=== PATIENT | female | born 1975 | race Caucasian/White ===

== ENCOUNTER 2020-11-17 15:22 | Outpatient (CLI) | payer OTHER, SELFPAY ==
--- NOTE | ~2020-11-17 | MM_ITS ---
EXAMINATION: MM screening [facility] BI w latisha HISTORY: Screening mammogram TECHNIQUE: Craniocaudal and mediolateral oblique 3-D tomosynthesis images were obtained and synthetic 2-D images were generated. CAD analysis was submitted and interpreted. COMPARISON: 05/24/2018, 02/24/2017, 02/16/2017 BREAST PARENCHYMAL COMPOSITION: The breasts are heterogeneously dense, which may obscure small masses . FINDINGS: There is no evidence of suspicious mass, calcification, or architectural distortion to sugg est malignancy in either breast. There has been no suspicious interval change. IMPRESSION: 1. No mammographic evidence of malignancy. 2. Recommend routine screening mammography in one year. BI-RADS Category 1: Negative Reviewed, dictated and finalized at location A.
== END 2020-11-17 15:23 | disposition home or self-care (01) ==
LOC: ANHIMG 15:26
PROVIDERS: PCP Family Medicine; Visit Provider Physician Assistant
DX: Z12.31 Encounter for screening mammogram for malignant neoplasm of breast (principal)
CPT/HCPCS: 77063; 77067

== ENCOUNTER → 2022-11-02 15:55 | Outpatient (CLI) | payer OTHER, SELFPAY ==
--- NOTE | ~2022-11-02 | XR_ITS ---
XR knee RT 3V DATE: 11/02/2022 16:13 INDICATION: Right knee pain TECHNIQUE: [place] and standing AP and lateral views COMPARISON: None FINDINGS: There is mild periarticular spurring of the patellofemoral joint. No fracture or dislocation or joint effusion. No radiopaque intra-articular loose body or chondral ca lcinosis. No periosteal reaction or bone destruction. IMPRESSION: Mild patellofemoral osteoarthritis Reviewed, dictated and finalized at location A.
== END ==
PROVIDERS: PCP Family Medicine; Visit Provider Family Medicine
DX: M25.561 Pain in right knee (principal); M17.11 Unilateral primary osteoarthritis, right knee
CPT/HCPCS: 73562

== ENCOUNTER → 2022-12-09 06:56 | Outpatient (CLI) | payer OTHER, SELFPAY ==
--- NOTE | ~2022-12-09 | MR_ITS ---
EXAMINATION: MR knee RT wo con DATE: 12/09/2022 07:30 INDICATION: Right knee pain. TECHNIQUE: Magnetic resonance imaging (MRI) of the right knee was performed without intravenous contr ast. Sequences included axial PD-weighted FS FSE, coronal PD-weighted FSE and PD-weighted FS FSE, sag ittal PD-weighted FSE, and sagittal T2-weighted FS FSE. COMPARISON: Right knee radiographs 11/02/2022 FINDINGS: Medial compartment: Increased signal in medial meniscus does not definitely extend to an articular surface to indicate a tear. There is full-thickness cartilage loss of femoral condyle involving the central articular surfa ce with mild subchondral edema-like marrow signal intensity. There is full-thickness cartilage loss o f tibial condyle involving the anteromedial articular surface with mild subchondral edema-like marrow signal intensity. Osteophytes are noted. Lateral compartment: Lateral meniscus is normal. There is cartilage surface irregularity of tibial condyle and femoral con dyle. There are tiny osteophytes. Patellofemoral compartment: There is shallow partial-thickness cartilage loss of patellar medial facet and median ridge. There is cartilage surface irregularity of trochlea. Osteophytes are noted. Ligaments and tendons: The anterior and posterior cruciate ligaments are normal. There are changes of prior sprains of media l collateral ligament and fibular collateral ligament characterized by thickening and increased signa l intensity proximally. There is mild patellar tendinopathy. Fluid: There is a moderate-sized knee joint effusion. IMPRESSION: 1. Severe chondrosis of medial compartment and mild chondrosis of lateral and patellofemoral compartm ents. 2. Moderate-sized knee joint effusion. Reviewed, dictated and finalized at location E. IMPRESSION: 1. Severe chondrosis of medial compartment and mild chondrosis of lateral and p atellofemoral compartments. 2. Moderate-sized knee joint effusion.
== END ==
PROVIDERS: PCP Physician Assistant Surgical; Visit Provider Orthopaedic Surgery
DX: M25.461 Effusion, right knee (principal); M25.561 Pain in right knee
CPT/HCPCS: 73721

== ENCOUNTER 2022-12-13 15:53 | Outpatient (CLI) | payer OTHER, SELFPAY ==
--- NOTE | ~2022-12-13 | MM_ITS ---
EXAMINATION: MM screening [facility] BI w latisha HISTORY: Screening mammogram TECHNIQUE: Craniocaudal and mediolateral oblique 3-D tomosynthesis images were obtained and synthetic 2-D images were generated. CAD analysis was submitted and interpreted. COMPARISON: 11/17/2020, 05/24/2018, 02/24/2017, 02/16/2017 BREAST PARENCHYMAL COMPOSITION: The breasts are heterogeneously dense, which may obscure small masses . FINDINGS: No suspicious mass, calcification, or architectural distortion are identified in either lei ast to suggest malignancy. There has been no suspicious interval change. IMPRESSION: 1. No mammographic evidence of malignancy. 2. Recommend routine screening mammography in one year. BI-RADS Category 1: Negative Reviewed, dictated and finalized at location A.
== END 2022-12-13 15:54 | disposition home or self-care (01) ==
LOC: ANHIMG 15:56
PROVIDERS: PCP Family Medicine; Visit Provider Physician Assistant
DX: Z12.31 Encounter for screening mammogram for malignant neoplasm of breast (principal)
CPT/HCPCS: 77063; 77067

== ENCOUNTER 2023-11-22 07:59 | Day surgery (SDC) | payer OTHER, SELFPAY ==
[2023-10-20 10:41] VITALS: BMI 28.0
[2023-11-08 14:53] VITALS: BMI 26.4
--- NOTE | 2023-11-21 15:34 | P.PNAN_ITS ---
Anes - Initial Pre Proc Eval Procedure: Operation Date: 11/22/23 10:00 Proposed Procedures p Screening Colonoscopy - Juan Luis Guerrier MD Date/Time: 11/21/23 15:34 Surgeon: Juan Luis Guerrier MD Pre Op Diagnosis: Neoplasm Screening Patient Data Age: 47 Gender: F Height: 1.75 m Weight: 81 kg Allergies Allergy/AdvReac Type Severity Reaction Status Date / Time erythromycin base Allergy Unknown Difficulty Verified 11/22/23 08:43 Breathing Home Medications Medication Instructions Recorded Confirmed Type valacyclovir 1 gram tablet 2,000 mg PO Q12H #4 tabs 05/30/23 11/22/23 Rx clonazepam 0.5 mg tablet 0.5 mg PO HS 11/08/23 11/22/23 History estradiol 0.01% (0.1 mg/gram) 1 appful vaginal HS 11/08/23 11/22/23 History vaginal cream (Estrace) rosuvastatin 40 mg tablet 40 mg PO HS 11/08/23 11/22/23 History norethindrone 1 mg-ethinyl See Rx Instructions .Route 11/13/23 11/22/23 Rx estradiol 20 mcg (21)-iron 75 mg .COMPLEX #28 tabs (7) tablet ([place] Fe 03/04 (28)) Patient hx anesthesia problems: none Family hx anesthesia problems: none Results Review: All pre-operative results and documents have been reviewed as part of the pre- operative evaluation. FOR[facility]LY [facility] Past Medical History Medical History (Updated 11/22/23 @ 09:11 by Juan Luis Guerrier MD) Anxiety GERD (gastroesophageal reflux disease) Mixed hyperlipidemia Primary osteoarthritis of right knee Vitamin D deficiency, unspecified Surgical History Surgical History History of LEEP (loop electrosurgical excision procedure) of cervix complicating Social History Social History (Updated 11/01/22 @ 18:11 by Roxana Kendrick RN) Smoking status: Never smoker Alcohol intake: current Drinks per week: 0 Alcohol use details: 2X A MONTH Substance use: never Substance use type: does not use Lack of Transportation: No Lack of Food: Never True Current Housing: I Have Housing Concerned About Future Housing: No Difficulty Paying Gas/Electric Bills: No Difficulty Paying for Meds: No Currently Unemployed: No Education: Trade/Vocational Certificate Difficulty w/ Childcare or Family Care: No Living arrangements: with family Occupation/Education: occupation Gender identity (if verbalized by the patient): Female Sexual Orientation (if Verbalized by the Patient): Straight or Heterosexual Spiritual care concerns: No Anes - Eval Final PreProcedure Day of Procedure 11/21/23 15:34 Patient weight: overweight Heart: regular rate and rhythm Lungs: clear to auscultation Airway: Mallampati scale class II Neurological: alert and oriented Last oral intake: >/= 8 hours ASA classification: II Emergent: no Anesthetic plan: proceed Anesthesia type and monitoring: general GIVS and standard monitoring Results Review: All pre-operative results and documents have been reviewed as part of the pre- operative evaluation. Informed Consent: The patient's anesthetic plan and its attendant risks and benefits were discussed with the patient/family/POA. Questions were solicited and answers provided to the satisfaction of the patient/family/POA.
[2023-11-22 08:45] VITALS: BP 126/73; PULSE 75; RESP 15; TEMP 36.9; O2SAT 99
[2023-11-22] MEDS: LACTATED RINGERS 1,000 ML 150 ML IV CONT (08:48)
--- NOTE | 2023-11-22 09:10 | PM.HPGS ---
History of Present Illness History of Present Illness Consent: Risks, benefits, and alternatives have been discussed and questions answered. Patient agrees to proceed with procedure. Chief complaint: Neoplasm Screening Narrative: Didi Kelly is a 47 year old female presents for screening colonoscopy. Patient's current weight appetite and bowel movements are normal. Patient denies abdominal pain. She has had no bleeding. Family history is noncontributory. Review of Systems Review of Systems: All systems reviewed & are unremarkable except as noted in HPI and below PMFSH Past Medical History Medical History (Updated 11/22/23 @ 09:11 by Juan Luis Guerrier MD) Anxiety GERD (gastroesophageal reflux disease) Mixed hyperlipidemia Primary osteoarthritis of right knee Vitamin D deficiency, unspecified Surgical History Surgical History History of LEEP (loop electrosurgical excision procedure) of cervix complicating Social History Social History (Updated 11/01/22 @ 18:11 by Roxana Kendrick RN) Smoking status: Never smoker Alcohol intake: current Drinks per week: 0 Alcohol use details: 2X A MONTH Substance use: never Substance use type: does not use Lack of Transportation: No Lack of Food: Never True Current Housing: I Have Housing Concerned About Future Housing: No Difficulty Paying Gas/Electric Bills: No Difficulty Paying for Meds: No Currently Unemployed: No Education: Trade/Vocational Certificate Difficulty w/ Childcare or Family Care: No Living arrangements: with family Occupation/Education: occupation Gender identity (if verbalized by the patient): Female Sexual Orientation (if Verbalized by the Patient): Straight or Heterosexual Spiritual care concerns: No Meds Home Medications and Allergies Home Medications Medication Instructions Recorded Confirmed Type valacyclovir 1 gram tablet 2,000 mg PO Q12H #4 tabs 05/30/23 11/22/23 Rx clonazepam 0.5 mg tablet 0.5 mg PO HS 11/08/23 11/22/23 History estradiol 0.01% (0.1 mg/gram) 1 appful vaginal HS 11/08/23 11/22/23 History vaginal cream (Estrace) rosuvastatin 40 mg tablet 40 mg PO HS 11/08/23 11/22/23 History norethindrone 1 mg-ethinyl See Rx Instructions .Route 11/13/23 11/22/23 Rx estradiol 20 mcg (21)-iron 75 mg .COMPLEX #28 tabs (7) tablet ([place] Fe 03/04 (28)) Allergies Allergy/AdvReac Type Severity Reaction Status Date / Time erythromycin base Allergy Unknown Difficulty Verified 11/22/23 08:43 Breathing Vital Signs Vital Signs - 24 hr 11/22/23 08:45 Temperature 98.4 F Pulse Rate 75 Respiratory Rate 15 Blood Pressure 126/73 Pulse Oximetry 99 Oxygen Delivery Room Air Exam Narrative: Physical exam reveals patient signs stable. HEENT exam is unremarkable. Patient is anicteric. Lungs are clear to auscultation and percussion is without murmur or extra sounds. Abdomen bowel sounds are present soft nontender with no organomegaly.. Digital external rectal exam is normal. Assessment and Plan Assessment and plan (1) Screen for colon cancer: Code(s): Z12.11 - Encounter for screening for malignant neoplasm of colon Status: Acute Assessment and Plan: Patient presents for screening colonoscopy. She appears to be at average risk for polyps. Further recommendations may be given after endoscopy.
[2023-11-22 10:22] VITALS: BP 90/51; PULSE 71; RESP 16; O2SAT 98
[2023-11-22 10:32] VITALS: BP 102/67; PULSE 55; RESP 16; O2SAT 99
[2023-11-22 10:42] VITALS: BP 100/62; PULSE 58; RESP 16; O2SAT 99
--- NOTE | 2023-11-22 12:54 | WPDANESPN ---
Anes - Prog Note Post-Op Date/Time: 11/22/23 12:54 Cardiovascular status: normal Respiratory status: normal Airway patency: baseline Mental status: baseline Post-Op hydration status: normal Vital Signs: Last Vital Signs Temp 36.9 C 11/22/23 08:45 Pulse 58 L 11/22/23 10:42 Resp 16 11/22/23 10:42 BP 100/62 11/22/23 10:42 Pulse Ox 99 11/22/23 10:42 O2 Del Method Room Air 11/22/23 10:42 Pain Score (VAS): 0 I/O: Intake & Output 11/21/23 11/22/23 11/22/23 23:59 07:59 15:59 Intake Total 600 Balance 600 Post-procedural complaints: none Patient Feedback: Patient satisfied with anesthetic care. Other Findings: Patient vital signs back to baseline. Patient denies nausea and vomiting. Patient's pain under control. Patient OK for discharge.
== END 2023-11-22 10:55 | disposition home or self-care (01) ==
PROVIDERS: PCP Family Medicine; Visit Provider Internal Medicine Gastroenterology
PROC: 0DJD8ZZ Inspection of Lower Intestinal Tract, Via Natural or Artificial Opening Endoscopic (ICD-10-PCS; CPT 45378; principal; 2023-11-22 10:00)
DX: Z12.11 Encounter for screening for malignant neoplasm of colon (principal); D12.3 Benign neoplasm of transverse colon; K64.8 Other hemorrhoids
CPT/HCPCS: 45385

== ENCOUNTER 2023-11-22 10:48 | Outpatient (NON) | payer OTHER, SELFPAY | END 2023-11-22 10:49 | disposition home or self-care (01) | LOC: ANHLAB 11-23 10:49 | PROVIDERS: PCP Family Medicine; Visit Provider Internal Medicine Gastroenterology | DX: D12.3 Benign neoplasm of transverse colon (principal); Z12.11 Encounter for screening for malignant neoplasm of colon | CPT/HCPCS: 88305 ==

== ENCOUNTER 2024-03-11 15:21 | Outpatient (CLI) | payer OTHER, SELFPAY ==
--- NOTE | ~2024-03-11 | MM_ITS ---
EXAMINATION: MM screening eleanor BI w latisha HISTORY: Screening TECHNIQUE: Craniocaudal and mediolateral oblique 3-D tomosynthesis images were obtained and synthetic 2-D images were generated. CAD analysis was submitted and interpreted. COMPARISON: Comparison to multiple prior studies sequentially, with oldest reviewed study dated 05/2017. BREAST PARENCHYMAL COMPOSITION: Dense: The breasts are heterogeneously dense, which may obscure small masses FINDINGS: There is no evidence of suspicious mass, calcification, or architectural distortion to sugg est malignancy in either breast. There has been no suspicious interval change. IMPRESSION: 1. No mammographic evidence of malignancy. 2. Recommend routine screening mammography in one year. BI-RADS Category 1: Negative Reviewed, dictated and finalized at location A. ICATION OPERATOR
--- OUTSIDE RECORDS SUMMARY | 2024-03-11 16:09 | XMS_ITS | Data Portability ---
Author Organization [place] [facility], Main Office Address [address] [place] [address] Care Team Providers [facility] Name Role Phone JESSICA SAUNDERS Primary Care Provider JESSICA SAUNDERS Referring Provider [phone] Assessment Encounter Date Assessment Date Assessment LastModified by Organization Details LastModified Time 12/30/2022 12/30/2022 HPI: Patient returns. She has been using the walker for last 2 weeks. She states that the right knee is now 75% better. She continues on diclofenac. She has noticed a swelling is gone away in the knee. Overall her symptoms are dramatically improved. Physical exam: Patient has no effusion in the right knee. Range of motion is from 0-140 degrees. She has some faint bit of tenderness over the medial tibial plateau. No lateral joint line tenderness. No tenderness over the medial femoral condyle. She is walking relatively well today. She left the walker in her car and she is walking without limp. Impression: Patient has severe medial compartment osteoarthritis. She suffered a bony contusion after a hard step off of a curb. It would seem that the bony contusion is improving and I recommended she continue to take it easy not overdo her activities and let things continue to improve. She is going to stay on the diclofenac this point. We will get blood work in 3 months and every 6 months if she continues on it. Discussed with her again the fact that she is only 47 at some point she is going to need surgical intervention on the knee but hopefully to put this off as long as possible. She can repeat cortisone injections in the future depending on her symptoms. At this point we can see her back on an as-needed basis. 20 minutes was spent in treatment patient more than half of this ttyw-zt-czzu conversation [email or web address] Not available 12/30/2022 11:12:53 05/18/2023 05/18/2023 By previous x-ra y and exam the patient is noted to have moderately severe primary osteoarthritis right knee joint particularly the medial compartment. We talked about treatment options today in detail we did discuss the possibility of gel shots we would have to get these preapproved in the meantime she would like to do cortisone therefore under sterile conditions I injected the patient's right knee joint in the office with 4 cc 0.5% Marcaine and 20 mg of Kenalog. Patient tolerated procedure well. She will continue with diclofenac low-impact exercise as tolerated. She would like to get the gel shots approved for future use I can see her back in about 6 weeks if necessary or later depending on how long the cortisone works for her. At that time we could do gel shots she was given a brochure on this today. She voiced understanding and agrees above plan she will call for any further problems difficulties or questions. Not available 05/18/2023 10:59:35 06/22/2023 06/22/2023 The patient has moderately severe primary osteoarthritis of the right knee joint. Under sterile conditions I injected the patient's right knee joint in the office today with Euflexxa injection number 1 that she brings from the specialty pharmacy for our use today. I will see her back next week for the 2nd injection, she voiced understanding agrees above plan she will call for any further problems difficulties or questions. Not available 06/22/2023 09:22:36 06/29/2023 06/29/2023 The patient has moderately severe primary osteoarthritis right knee joint. Under sterile conditions I injected the patient's right knee joint in the office today with Euflexxa injection number 2 that was brought by the patient from the specialty pharmacy. I will see her back next week for the 3rd injection right knee she voiced understanding agrees above plan she will call for any further problems difficulties or questions. Not available 06/29/2023 09:09:49 07/06/2023 07/06/2023 The patient has fairly severe primary osteoarthritis of the right knee joint under sterile conditions I injected the patient's right knee joint in the office with Euflexxa injection number 3 from the specialty pharmacy. We will give it time see how she does I will see her back in a couple of months if necessary we could do cortisone then versus gel shots again in about 6 months. She voiced understanding agrees above plan she will call for any further problems difficulties or questions. She has diclofenac she has not been taking it I have advised her to continue with diclofenac 75 mg b.i.d. with food to help as well. Not available 07/06/2023 09:13:20 Plan of Treatment Reminders Order Date Submit Date Provider Last Modified By Organization Details Last Modified Time Details Appointments None recorded. Lab None recorded. Referral None recorded. Procedures injection/a spiration joint/bursa (PROC) - in office procedure, administere d by provider 2023 024 [email or web address] In-Office Order, Internal Use Only DO Not Attach Compendium DO Not Attach Compendium, Do Not Delete/merge, [id number] 10:36:54 knee aspiration/ injection (PROC) 2023 024 [email or web address] 3 In-Office Order, Internal Use Only DO Not Attach Compendium DO Not Attach Compendium, Do Not Delete/merge, [id number] 09:06:00 knee aspiration/ injection (PROC) 2023 024 [email or web address] 3 In-Office Order, Internal Use Only DO Not Attach Compendium DO Not Attach Compendium, Do Not Delete/merge, [id number] 09:08:34 injection/a spiration joint/bursa (PROC) - in office procedure, administere d by provider 2023 024 [email or web address] In-Office Order, Internal Use Only DO Not Attach Compendium DO Not Attach Compendium, Do Not Delete/merge, [id number] 4 09:02:45 Surgeries None recorded. Imaging None recorded. Medication Orders Kenalog 10 mg/mL suspension for injection 2023 024 [email or web address] [facility] #[id number], [address], [place], [place], [phone], 11:00:31 Marcaine 0.5 % (5 mg/mL) injection solution 2023 024 [email or web address] [facility] #[id number], [address], [place], [place], [phone], 11:00:31 Patient TargetsNo targets recorded. Patient Instructions Encounter Date Encounter Id Patient Instructions Last Modified By Organization Details Last Modified Time 05/18/2023 [id number] viscosupplementa tion treatment* [email or web address] Not available 05/25/2023 09:15:02 Reason for Referral None Reported. Results Created Date Observation Date Name Description Value Unit Range Abnormal Flag Note LastModifiedBy Organization Detail LastModifiedTime 12/10/1912/09/2022 MRI, knee, w/o contr ast No observ ation record ed. [email or web address] [facility] [address], [place], [address], 12/12/2022 10:17:26 12/10/1912/09/2022 MRI, knee, w/o contr ast No observ ation record ed. [email or web address] [facility] [address], [place], [address], 12/12/2022 10:18:07 12/17/19 XR, knee No observ ation record ed. [email or web address] [facility] [address], [place], [address], 12/16/2022 10:09:00 Result Notes None recorded. Problems Name Problem SNOMED Code Status Onset Date Resolution Date Notes Provider Name and Address Organization Details Recorded Time Pain of right knee joint 9141896739440 00 Active 2022 AIDEE Deleon[place] [facility] 3 10:16:42 Osteoarthri tis of right knee joint 2657653702327 00 Active 2022 AIDEE Deleon, [place] [facility] 3 10:14:08 Problem Notes None recorded. Procedures Surgical History None recorded. Imaging Results Imaging Date Name Status LastModified by Organiz ation Details LastModified Time 12/09/2022 MRI, knee, w/o contrast completed [email or web address] [facility] [address], [place], [address], 12/12/2022 10:17:26 12/09/2022 MRI, knee, w/o contrast completed [email or web address] [facility] [address], [place], [address], 12/12/2022 10:18:07 12/16/2022 XR, knee completed [email or web address] [facility] [address], [place], [address], 12/16/2022 10:09:00 Procedure Notes None recorded. Medical Equipment None Reported. Allergies Allergen ID Allergen Name Allergen Category Reaction Reaction Severity Criticality Documentation Date Start Date Code Code System Note Provider Name and Address Organization Details Recorded Time 42688 Erythroci n medicatio n Not available Not available Not available 11/24/2022 77566 3 RxNorm AIDEE Deleon, [place] [facility] 10:10:07 Medications Name Sig Start Date Stop Date Status Note LastModified by Organization Details LastModified Time valacyclovi r 1 gram tablet TAKE 2 TABLETS BY MOUTH EVERY 12 HOURS active Not Available Not Available No t Available meloxicam 15 mg tablet TAKE 1 TABLET BY MOUTH DAILY 11/24 completed Not Available Not Available Not Available clonazepam 0.5 mg tablet TAKE 1 TABLET BY MOUTH DAILY active Not Available Not Available No t Available tramadol 50 mg tablet TAKE 1 TABLET BY MOUTH THREE TIMES DAILY NEEDED active Not Available Not Available No t Available Marcaine 0.5 % (5 mg/mL) injection solution Take 20 mg by injection route. 2023 active Not Available Not Available Not Avai lable Kenalog 10 mg/mL suspension for injection Take 20 mg by injection route. 2023 active ND: 0003- 0494- 20 Not Available Not Available Not Available diclofenac sodium 75 mg tablet,lashonda yed release Take 1 tablet twice a day by oral route. 2023 active Not Available Not Available Not Avai lable estradiol 0.01% (0.1 mg/gram) vaginal cream INSERT 1 APPLICATO RFUL VAGINALLY DAILY active Not Available Not Available No t Available rosuvastati n 20 mg tablet TAKE 1 TABLET BY MOUTH DAILY active Not Available Not Available No t Available rosuvastati n 40 mg tablet TAKE 1 TABLET BY MOUTH DAILY active Not Available Not Available No t Available solifenacin 10 mg tablet TAKE 1 TABLET BY MOUTH DAILY active Not Available Not Available No t Available Euflexxa 10 mg/mL (mw 2.4-3.6 million) intra-artic ular syringe Inject 2 mL by intra-art icular route as directed for 21 days, for right knee osteoarth ritis. 2023 active Not Available Not Available Not Avai lable sodium,pota ssium,mag sulfates 17.5 gram-3.13 gram-1.6 gram oral soln TAKE DIRECTED PER WRITTEN INSTRUCTI ONS THAT WERE MAILED TO YOU active Not Available Not Available No t Available Blisovi Fe 03/04 (28) 1 mg-20 mcg (21)/75 mg (7) tablet TAKE 1 TABLET BY MOUTH EVERY DAY active Not Available Not Available No t Available Vitals Date Recorded Body height Provider Name an d Address Organization Details Last Updated DateTime 12/30/2022 175.26 cm AIDEE Deleon [email or web address] 12/30/2022 10:12:33 Date Recorded Body height Body mass index (BMI) Body weight Provider Name and Address Organization Details Last Updated DateTime 05/18/2023 175.26 cm 26.6 kg/m2 17235.63 yanet Rodriguez CNA [email or web address] 05/18/2023 10:35:08 Date Recorded Body height Body mass index (BMI) Body weight Provider Name and Address Organization Details Last Updated DateTime 06/22/2023 175.26 cm 26.6 kg/m2 18319.63 yanet De Leon [email or web address] 06/22/2023 09:05:19 Date Recorded Body height Body mass index (BMI) Body weight Provider Name and Address Organization Details Last Updated DateTime 06/29/2023 175.26 cm 26.6 kg/m2 89418.63 yanet De Leon [email or web address] 06/29/2023 09:03:00 Date Recorded Body height Body mass index (BMI) Body weight Provider Name and Address Organization Details Last Updated DateTime 07/06/2023 175.26 cm 26.6 kg/m2 41085.63 yanet Rodriguez CNA [place] [facility] 07/06/2023 09:01:33 Social History None recorded. Functional Status None recorded. Mental Status None recorded. Family History Relationship Description Onset Age of this Age Resolved Age Notes LastModified by Organization Details LastModified Time Father Family history of malignant neoplasm [email or web address] Not available 2022 10:16:13 Mother Family history of malignant neoplasm [email or web address] Not available 2022 10:16:13 Medical History Condition Response ARTHRITIS Y Gynecological HistoryNo gynecological history recorded. Obstetrics History GPAL:G 0 P 0 0 0 0 Past Encounters Encounter ID Performer Location Encounter Start Date Encounter Closed Date Diagnosis/Indication Diagnosis SNOMED-CT Code Diagnosis ICD10 Code Diagnosis Note [id number] RADHA Woodall [facility] [address] [place] [address] 11/24/2022 09:30:59 11/24/2022 10:51:12 Pain of right knee joint 6136666169 24530 M25.064 [id number] RAD[facility] [address] [place] [address] 12/16/2022 08:54:16 12/16/2022 10:45:11 Pain of right knee joint 4582425295 94688 M25.008 [id number] RADHA Woodall [facility] [address] [place] [address] 12/30/2022 10:09:55 12/30/2022 11:13:43 Osteoarthritis of right knee joint 3878651247 71273 M17.11 [id number] RADHA Wilburn [facility] [address] [place] [address] 05/18/2023 10:31:57 05/18/2023 11:15:15 Osteoarthritis of right knee joint 7096849479 35622 M17.11 Pain of ri ght knee joint 4336721961 63469 M25.425 [id number] RAD[facility] [address] [place] [address] 06/22/2023 09:00:31 06/22/2023 09:31:24 Osteoarthritis of right knee joint 4496325785 45692 M17.11 [id number] RADHA Wilburn [facility] [address] [place] [address] 06/29/2023 08:57:32 06/29/2023 09:36:08 Osteoarthritis of right knee joint 1168970952 77339 M17.11 [id number] [facility] [address] [place] [address] 07/06/2023 08:58:18 07/06/2023 10:06:42 Osteoarthritis of right knee joint 2208848740 08340 M17.11 Pain of ri ght knee joint 8525718957 96417 M25.561 Health Concerns Section Related Observation LastModified by Organization Detai ls LastModified Time None Recorded Concern Status LastModified by Organization Details LastModified Time None Recorded Advance Directives Directive None Recorded Payers Encounter Date Sequence Insurance Name Policy Number Policy Kaur Covered Member ID Kaur Member ID Guarantor Name 12/30/2022 1 [facility] Didi Kelly [id number] Didi Kelly 05/18/2023 1 [facility] Didi Kelly [id number] Didi Kelly 06/22/2023 1 [facility] Didi Kelly [id number] Didi Kelly 06/29/2023 1 [facility] Didi Kelly [id number] Didi Kelly 07/06/2023 1 [facility] Didi Kelly [id number] Didi Kelly Notes Date Note Type Note Provider Name and Address Organization Details Recorded Time 05/18/2023 text/html Patient returns complaining of right knee pain. She has been having ongoing pain since last summer previous x-rays show what appear to be significant narrowing of the medial compartment she also has significant crepitation through the arc of motion. The knee has swollen several times in the past year she has had it drained a couple of times. Currently she has no effusion she localizes the pain to the medial compartment her exam findings previously did not show any suspicion for meniscal pathology. Cortisone has helped somewhat gives her fairly decent relief she has not had a cortisone shot for quite awhile she would like another 1 today. She was last seen by Jordan Downs in December of 2022 for recheck but did not have an injection then. She does take diclofenac 75 mg BID daily. Denies any new trauma or injury comes in today requesting further evaluation treatment. She does work out she has had to adjust her workout routine and is doing low-impact things. She states the pain is about an 8 on a scale of 1-10 today. RADHA Wilburn [address], [place], [address], [place] 05/18/2023 11:00:20 06/22/2023 text/html patient returns for Euflexxa injection number 1 right knee. She brings the injection from the specialty pharmacy for use today. The patient has moderately severe primary osteoarthritis with near djxz-cj-[id number] changes in medial compartment of the right knee. She continues have some pain ongoing for about a year. The patient has had previous cortisone injections which gave her moderate relief she would now like to try a round of gel shots instead. Denies any new symptoms no new trauma or injury to the knee other than some bruising on the upper medial knee and thigh where she stumbled and fell down some stairs. Denies any other symptoms other than the bruise there. RADHA Wilburn [address], [place], [address], [email or web address] 06/22/2023 09:23:11 06/29/2023 text/html Patient returns for Euflexxa injection number 2 right knee. She brings her medication from the specialty pharmacy for use today. She is moderately severe primary osteoarthritis which is near tfoi-em-mzcx in the medial compartment of the right knee she has had some chronic pain ongoing for about a year. She comes in today states she is already starting to get some relief feeling good today. States her pain is about a 1 on a scale of 1-10 at worst. She is quite pleased with the results so far. Denies any erythema effusion or signs of infection. RADHA Wilburn [address], [facility] [address], [place], [address], [email or web address] 06/29/2023 09:10:04 07/06/2023 text/html Patient returns for Euflexxa injection number 3 that she brings in from the specialty pharmacy. She has getting a little bit of relief with her right knee from the 1st 2 rounds of injections but not where she wants to be yet I have advised her to give it more time she has cvxy-uy-vqsh changes in the medial compartment of the right knee she states her pain is about a 2 on a scale of 1-10. Denies any effusion or swelling no erythema heat or other signs of infection today. RADHA Wilburn [address], [facility] [address], [place], [address], [email or web address] 07/06/2023 09:13:34 OBGyn Episode No OBEpisode recorded.
--- OUTSIDE RECORDS SUMMARY | 2024-03-11 16:09 | XMS_ITS | CONTINUITY OF CARE DOCUMENT ---
Author Name kyler chávez Address Unknown Organization [facility] Address [address] [place] [address] [address] [place] [address] Phone [phone] Care Team Providers Care Anime Designer Name Role Phone Gabriel Delgadillo MD Unavailable JESSICA SAUNDERS MD Unavailable JESSICA SAUNDERS MD Unavailable PROBLEMS Condition Status Date Provider Notes Cardiovascular screening active Tamara Henderson INSURANCE PROVIDERS Payer name Policy type / Coverage type Almyra red libertarian ID [facility] [id number] Other [id number] TREATMENT PLAN Date Name CT, Coronary Calcium Score HISTORY OF PROCEDURES Procedure Date Procedure Name Provider Procedure Notes S tatus CT- Coronary CA score Gabriel Delgadillo MD completed
--- OUTSIDE RECORDS SUMMARY | 2024-03-11 16:09 | XMS_ITS | Data Portability ---
Author Organization [facility]am [facility] Address [address] [place] [address] Care Team Providers Care [employer] Teacher Name Role Phone MARIE GIL Rehabilitation Case Coordinator Unavailable Assessment No assessment recorded. Plan of Treatment Reminders Order Date Submit Date Provider Last Modified By Organization Details Last Modified Time Details Appointments None recorded. Lab test, urine 2014 015 [email or web address] In-Office Order, Internal Use Only DO Not Attach Compendium DO Not Attach Compendium, Do Not Delete/merge, [id number] 5 16:08:38 urinalysi s, dipstick 2014 015 [email or web address] In-Office Order, Internal Use Only DO Not Attach Compendium DO Not Attach Compendium, Do Not Delete/merge, [id number] 5 16:08:38 pap, IG + HPV, cervical 2015 016 [facility], [address] [place] [address], [address], [place], [address], 6 09:11:40 bacterial vaginosis + vaginitis panel, vaginal 2015 016 [facility], [address], [address], [place], [address], 6 14:13:27 test, urine 2015 016 [email or web address] In-Office Order, Internal Use Only DO Not Attach Compendium DO Not Attach Compendium, Do Not Delete/merge, [id number] 6 10:36:52 urinalysi s, dipstick 2015 016 [email or web address] In-Office Order, Internal Use Only DO Not Attach Compendium DO Not Attach Compendium, Do Not Delete/merge, [id number] 6 10:36:52 dhea-sulf ate, serum [address], [address], [place], [address], 6 06:07:09 testoster one, total, serum 2015 [address], [address], [place], [address], 6 06:07:08 lipid panel, serum 2015 [address], [address], [place], [address], 6 06:07:07 HbA1c (hemoglob in A1c), blood 2015 [address], [address], [place], [address], 6 06:07:08 CMP, serum or plasma 2015 [address], [address], [place], [address], 6 06:07:07 TSH, serum or plasma [address], [address], [place], [address], 6 06:07:09 FSH (follicle -stimulat ing hormone), serum 2015 016 [facility], [address], [address], [place], [address], 6 06:07:10 lh (luteiniz ing hormone), serum 2015 016 [facility], [address] [facility] [address], [place], [address], 6 06:07:10 prolactin , serum 2015 016 [facility], [address] [facility] [address], [address], [place], [address], 6 06:07:11 estradiol , serum 2015 016 [facility], [address] [place], [place] [address]and[address], [address], [place], [address], 6 06:07:11 progester one, serum 2015 016 [facility], [address] [place], [place] [address], [address], [place], [address], 6 06:07:11 urinalysi s, dipstick 2015 016 DBA_PATCH_[email or web address] [id number] In-Office Order, Internal Use Only DO Not Attach Compendium DO Not Attach Compendium, Do Not Delete/merge, [id number] 6 04:31:13 test, urine 2015 016 DBA_PATCH_2 [id number] In-Office Order, Internal Use Only DO Not Attach Compendium DO Not Attach Compendium, Do Not Delete/merge, [id number] 6 04:31:21 Referral counselin g referral - LAMAR with panic and tachycard ia 2015 016 [email or web address] Maxime Luna (), [address] [place] [address], [address], 6 09:12:28 Procedures uterine fibroid embolizat ion (PROC) 2015 016 DBA_PATCH_[email or web address] [id number] Not available 6 04:30:57 Surgeries None recorded. Imaging MAMMO, screening , bilateral 2015 016 [email or web address] [facility], [address] [place], [address], 6 09:13:39 US, pelvis - Trans vaginal and trans abdominal , possible uterine fibroids and/or polyps. 2015 016 [facility], [address] [place], [address], 6 10:39:38 MAMMO, diagnosti c, digital, bilateral 2015 016 [facility], [address], [address], [address], 7 15:25:18 US, pelvis, transabdo pelon + transvagi nal 2015 016 DBA_PATCH_2 [id number] [facility], [address] [place], [address], 6 04:30:54 US, transvagi nal 2016 018 [email or web address] [facility], [address] [place], [address], 8 14:49:17 Medication Orders Prometriu m 100 mg capsule 2014 015 [facility] [place], [address], 5 16:08:38 buspirone 5 mg tablet 2015 016 [facility] [address] [place], [address], 6 10:36:52 Lo Loestrin Fe 1 mg-10 mcg (24)/10 mcg (2) tablet 2016 017 [facility] [address] [place], [address], 7 16:19:17 ibuprofen 800 mg tablet 2016 017 [facility] [address] [place], [address], 7 16:19:18 Patient TargetsNo targets recorded. Patient Instructions Encounter Date Encounter Id Patient Instructions Last Modified By Organization Details Last Modified Time 12/15/2015 [id number] Core Needle Breast Biopsy: About This Test Not available 12/15/2015 13:36:56 uterine fibroids : care instructions Not available 12/15/2015 13:36:56 08/09/2016 [id number] uterine fibroids : care instructions [email or web address] Not available 08/09/2016 17:06:11 Reason for Referral Counseling Referral for Anxi ety LAMAR with panic and tachycardia Referring Physician: Marie Gil, BARREL PL[employer]ER, Encounter Date: 07/28/2015 Results Created Date Observation Date Name Description Value Unit Range Abnormal Flag Note LastModifiedBy Organization Detail LastModifiedTime 12/15/19 16 12/15/2015 pregn nelson test, urine HCG negati ve Not Available In-Office Order Internal Use Only DO Not Attach Compendium DO Not Attach Compendium, Do Not Delete/merge, [id number] 12/15/2015 13:01:21 12/15/19 16 12/15/2015 urina lysis , dipst ick Leukocytes Small Not Available In-Offi ce Order Internal Use Only DO Not Attach Compendium DO Not Attach Compendium, Do Not Delete/merge, [id number] 12/15/2015 13:00:05 12/15/19 16 12/15/2015 urina lysis , dipst ick Nitrite negati ve Not Available In-Office Order Internal Use Only DO Not Attach Compendium DO Not Attach Compendium, Do Not Delete/merge, [id number] 12/15/2015 13:00:05 12/15/19 16 12/15/2015 urina lysis , dipst ick Urobilinogen .2 Not Available In-Of fice Order Internal Use Only DO Not Attach Compendium DO Not Attach Compendium, Do Not Delete/merge, [id number] 12/15/2015 13:00:05 12/15/19 16 12/15/2015 urina lysis , dipst ick Protein Negati ve Not Available In-Office Order Internal Use Only DO Not Attach Compendium DO Not Attach Compendium, Do Not Delete/merge, [id number] 12/15/2015 13:00:05 12/15/19 16 12/15/2015 urina lysis , dipst ick pH 8.5 Not Available In-Office Order Internal Use Only DO Not Attach Compendium DO Not Attach Compendium, Do Not Delete/merge, [id number] 12/15/2015 13:00:05 12/15/19 16 12/15/2015 urina lysis , dipst ick Blood Negati ve Not Available In-Office Order Internal Use Only DO Not Attach Compendium DO Not Attach Compendium, Do Not Delete/merge, [id number] 12/15/2015 13:00:05 12/15/19 16 12/15/2015 urina lysis , dipst ick Specific Odin 1.015 Not Available In-Off ice Order Internal Use Only DO Not Attach Compendium DO Not Attach Compendium, Do Not Delete/merge, [id number] 12/15/2015 13:00:05 12/15/19 16 12/15/2015 urina lysis , dipst ick Ketone Negati ve Not Available In-Office Order Internal Use Only DO Not Attach Compendium DO Not Attach Compendium, Do Not Delete/merge, [id number] 12/15/2015 13:00:05 12/15/19 16 12/15/2015 urina lysis , dipst ick Bilirubin Negati ve Not Available In-Office Order Internal Use Only DO Not Attach Compendium DO Not Attach Compendium, Do Not Delete/merge, [id number] 12/15/2015 13:00:05 12/15/19 16 12/15/2015 urina lysis , dipst ick Glucose Negati ve Not Available In-Office Order Internal Use Only DO Not Attach Compendium DO Not Attach Compendium, Do Not Delete/merge, 12/15/2015 13:00:07/28/19 16 07/28/2015 urina lysis , dipst ick Leukocytes Negati ve Not Available In-Office Order Internal Use Only DO Not Attach Compendium DO Not Attach Compendium, Do Not Delete/merge, 07/28/2015 11:44:07/28/19 16 07/28/2015 urina lysis , dipst ick Nitrite negati ve Not Available In-Office Order Internal Use Only DO Not Attach Compendium DO Not Attach Compendium, Do Not Delete/merge, 07/28/2015 11:44:07/28/19 16 07/28/2015 urina lysis , dipst ick Urobilinogen .2 Not Available In-Of fice Order Internal Use Only DO Not Attach Compendium DO Not Attach Compendium, Do Not Delete/merge, 07/28/2015 11:44:07/28/19 16 07/28/2015 urina lysis , dipst ick Protein Negati ve Not Available In-Office Order Internal Use Only DO Not Attach Compendium DO Not Attach Compendium, Do Not Delete/merge, 07/28/2015 11:44:07/28/19 16 07/28/2015 urina lysis , dipst ick pH 7.5 Not Available In-Office Order Internal Use Only DO Not Attach Compendium DO Not Attach Compendium, Do Not Delete/merge, 07/28/2015 11:44:07/28/19 16 07/28/2015 urina lysis , dipst ick Blood Small Not Available In-Office Order Internal Use Only DO Not Attach Compendium DO Not Attach Compendium, Do Not Delete/merge, 07/28/2015 11:44:07/28/19 16 07/28/2015 urina lysis , dipst ick Specific Odin 1.015 Not Available In-Off ice Order Internal Use Only DO Not Attach Compendium DO Not Attach Compendium, Do Not Delete/merge, 07/28/2015 11:44:07/28/19 16 07/28/2015 urina lysis , dipst ick Ketone Negati ve Not Available In-Office Order Internal Use Only DO Not Attach Compendium DO Not Attach Compendium, Do Not Delete/merge, 07/28/2015 11:44:05 07/28/19 16 07/28/2015 urina lysis , dipst ick Bilirubin Negati ve Not Available In-Office Order Internal Use Only DO Not Attach Compendium DO Not Attach Compendium, Do Not Delete/merge, 07/28/2015 11:44:05 07/28/19 16 07/28/2015 urina lysis , dipst ick Glucose Negati ve Not Available In-Office Order Internal Use Only DO Not Attach Compendium DO Not Attach Compendium, Do Not Delete/merge, 07/28/2015 11:44:05 07/28/19 16 07/28/2015 urina lysis , dipst ick Appearance Clear Not Available In-Offi ce Order Internal Use Only DO Not Attach Compendium DO Not Attach Compendium, Do Not Delete/merge, 07/28/2015 11:44:05 07/28/19 16 07/28/2015 urina lysis , dipst ick Color Pale Yellow Not Available In-Office Order Internal Use Only DO Not Attach Compendium DO Not Attach Compendium, Do Not Delete/merge, 07/28/2015 11:44:05 07/28/19 16 07/28/2015 pregn nelson test, urine HCG negati ve Not Available In-Office Order Internal Use Only DO Not Attach Compendium DO Not Attach Compendium, Do Not Delete/merge, 07/28/2015 11:44:05 10/15/19 15 10/14/2014 urina lysis , dipst ick Leukocytes Negati ve Not Available In-Office Order Internal Use Only DO Not Attach Compendium DO Not Attach Compendium, Do Not Delete/merge, 10/14/2014 15:29:38 10/15/19 15 10/14/2014 urina lysis , dipst ick Nitrite negati ve Not Available In-Office Order Internal Use Only DO Not Attach Compendium DO Not Attach Compendium, Do Not Delete/merge, 10/14/2014 15:29:38 10/15/19 15 10/14/2014 urina lysis , dipst ick Urobilinogen .2 Not Available In-Of fice Order Internal Use Only DO Not Attach Compendium DO Not Attach Compendium, Do Not Delete/merge, 10/14/2014 15:29:38 10/15/19 15 10/14/2014 urina lysis , dipst ick Protein Negati ve Not Available In-Office Order Internal Use Only DO Not Attach Compendium DO Not Attach Compendium, Do Not Delete/merge, 10/14/2014 15:29:38 10/15/1910/14/2014 urina lysis , dipst ick pH 8.5 Not Available In-Office Order Internal Use Only DO Not Attach Compendium DO Not Attach Compendium, Do Not Delete/merge, 10/14/2014 15:29:38 10/15/19 15 10/14/2014 urina lysis , dipst ick Blood Negati ve Not Available In-Office Order Internal Use Only DO Not Attach Compendium DO Not Attach Compendium, Do Not Delete/merge, 10/14/2014 15:29:38 10/15/1910/14/2014 urina lysis , dipst ick Specific Odin 1.015 Not Available In-Off ice Order Internal Use Only DO Not Attach Compendium DO Not Attach Compendium, Do Not Delete/merge, 10/14/2014 15:29:38 10/15/1910/14/2014 urina lysis , dipst ick Ketone Negati ve Not Available In-Office Order Internal Use Only DO Not Attach Compendium DO Not Attach Compendium, Do Not Delete/merge, 10/14/2014 15:29:38 10/15/1910/14/2014 urina lysis , dipst ick Bilirubin Negati ve Not Available In-Office Order Internal Use Only DO Not Attach Compendium DO Not Attach Compendium, Do Not Delete/merge, 10/14/2014 15:29:38 10/15/19 15 10/14/2014 urina lysis , dipst ick Glucose Negati ve Not Available In-Office Order Internal Use Only DO Not Attach Compendium DO Not Attach Compendium, Do Not Delete/merge, [id number] 10/14/2014 15:29:38 10/15/19 15 10/14/2014 pregn nelson test, urine HCG negati ve Not Available In-Office Order Internal Use Only DO Not Attach Compendium DO Not Attach Compendium, Do Not Delete/merge, [id number] 10/14/2014 15:07:20 07/28/19 16 07/30/2015 bacte rial vagin osis + vagin itis panel , vagin al bessie albicans, VY NEGATI VE negati ve Not Available [facility] ([facility]) [address] [place], [address], 07/31/2015 14:13:27 07/28/19 16 07/30/2015 bacte rial vagin osis + vagin itis panel , vagin al bessie glabrata, VY NEGATI VE negati ve THIS TEST WAS DEVEL OPED AND ITS PERFO RMANC E LAMIN CTERI STICS DETER MINED BY [facility]. IT HAS NOT BEEN CLEAR ED OR APPRO INGRIS BY THE FOOD AND DRUG ADMIN ISTRA TION. THE FDA HAS DETER MINED THAT SUCH CLEAR ANCE OR APPRO FOREST IS NOT NECES ELLYN. Not Available [facility] ([facility]) [address] [facility], [place], [address], 07/31/2015 14:13:27 07/28/19 16 07/30/2015 bacte rial vagin osis + vagin itis panel , vagin al trich vag by VY NEGATI VE negati ve Not Available [facility] ([facility]) [address] [place], [address], 07/31/2015 14:13:27 07/28/19 16 07/30/2015 bacte rial vagin osis + vagin itis panel , vagin al chlamydia trachomatis, VY NEGATI VE negati ve Not Available [facility] ([facility]) [address] [place], [address], 07/31/2015 14:13:27 07/28/19 16 07/30/2015 bacte rial vagin osis + vagin itis panel , vagin al neisseria gonorrhoeae, VY NEGATI VE negati ve Not Available [facility] ([facility]) [address] [facility], [place], [address], 07/31/2015 14:13:27 07/28/19 16 07/31/2015 bacte rial vagin osis + vagin itis panel , vagin al atopobium vaginae HIGH - 2 score abnormal Not Available [facility] ([facility]) [address] [facility], [place], [address], 07/31/2015 14:13:27 07/28/19 16 07/31/2015 bacte rial vagin osis + vagin itis panel , vagin al bvab 2 HIGH - 2 score abnormal Not Available [facility] ([facility]) [address] [place], [address], 07/31/2015 14:13:27 07/28/19 16 07/31/2015 bacte rial vagin osis + vagin itis panel , vagin al megasphaera 1 HIGH - 2 score abnormal CALCU LATE TOTAL SCORE BY MOSHE Olivarez THE 3 INDIV IDUAL BACTE RIAL VAGIN OSIS (BV) MARKE R SCORE S TOGET HER. TOTAL SCORE IS INTER PRETE D FOLLO WS: TOTAL SCORE 0-1: INDIC ATES THE ABSEN CE OF BV. TOTAL SCORE 2: INDET ERMIN ATE FOR BV. ADDIT IONAL CLINI ASHOK DATA SHOUL D BE EVALU ATED TO ESTAB ALEXANDRO A DIAGN OSIS. TOTAL SCORE 3-6: INDIC ATES THE PRESE NCE OF BV. THIS TEST WAS DEVEL OPED AND ITS PERFO RMANC E LAMIN CTERI STICS DETER MINED BY [facility]. IT HAS NOT BEEN CLEAR ED OR APPRO INGRIS BY THE FOOD AND DRUG ADMIN ISTRA TION. THE FDA HAS DETER MINED THAT SUCH CLEAR ANCE OR APPRO FOREST IS NOT NECES ELLYN. Not Available [facility] ([facility]) [address] [place], [address], 07/31/2015 14:13:27 07/28/19 16 07/31/2015 pap, IG + HPV, cervi ashok diagnosis: CAMRON Turpin abnormal EPITH ELIAL CELL ABNOR MALIT Y. ATYPI ASHOK SQUAM OUS CELLS OF UNDET ERMIN ED SIGNI KAYLA CE. Not Available [facility] ([facility]) [address] [place], [address], 08/03/2015 09:11:39 07/28/19 16 07/31/2015 pap, IG + HPV, cervi ashok specimen adequacy: CAMRON Turpin SATIS FACTO RY FOR EVALU ATION . ENDOC ERVIC AL AND/O R SQUAM OUS METAP LASTI C CELLS (ENDO CERVI ASHOK COMPO NENT) ARE PRESE NT. Not Available [facility] ([facility]) [address] [place], [address], 08/03/2015 09:11:39 07/28/19 16 07/31/2015 pap, IG + HPV, cervi ashok clinician provided ICD10: CAMRON Turpin Z01.4 11 Not Available [facility] ([facility]) [address] [place], [address], 08/03/2015 09:11:39 07/28/19 16 07/31/2015 pap, IG + HPV, cervi ashok performed by: CAMRON HOYT , CYTOT ECHNO LOGIS T (ASCP ) Not Available [facility] ([facility]) [address] [place], [address], 08/03/2015 09:11:39 07/28/19 16 07/31/2015 pap, IG + HPV, cervi ashok electronical ly signed by: CAMRON SHARMA MD, PATHO LOGIS T Not Available [facility] ([facility]) [address] [place], [address], 08/03/2015 09:11:39 07/28/19 16 07/31/2015 pap, IG + HPV, cervi ashok . . Not Available [facility] ([facility]) [address] [place], [address], 08/03/2015 09:11:39 07/28/19 16 07/31/2015 pap, IG + HPV, cervi ashok pathologist provided ICD10: LIZYJUAN Turpin R87.6 10 Not Available [facility] ([facility]) [address] [facility], [place], [address], 08/03/2015 09:11:39 07/28/19 16 07/31/2015 pap, IG + HPV, cervi ashok note: CAMRON Turpin THE PAP SMEAR IS A SCREE FORTINO TEST DESIG GILMAR TO AID IN THE DETEC TION OF DEMARCUS LIGNA NT AND MALIG NANT CONDI TIONS OF THE UTERI NE CERVI X. IT IS NOT A DIAGN OSTIC PROCE DURE AND SHOUL D NOT BE USED THE SOLE MEANS OF DETEC TING CERVI ASHOK CANCE R. BOTH FALSE -POSI TIVE AND FALSE -NEGA TIVE REPOR TS DO OCCUR . Not Available [facility] ([facility]) [address] [facility], [place], [address], 08/03/2015 09:11:39 07/28/19 16 07/31/2015 pap, IG + HPV, cervi ashok test methodology: CAMRON Turpin THIS LIQUI D BASED THINP REP(R ) PAP TEST WAS SCREE GILMAR WITH THE USE OF AN IMAGE GUIDE Zuleyma Ospina. Not Available [facility] ([facility]) [address] [place], [address], 08/03/2015 09:11:39 07/28/19 16 08/03/2015 pap, IG + HPV, cervi ashok HPV aptima NEGATI VE negati ve THIS TEST DETEC TS FOURT EEN HIGH- RISK HPV TYPES (16/1 8/31/ 33/35 /39/4 5/ 51/52 /56/5 8/59/ 66/68 ) WITHO UT DIFFE RENTI ATION . Not Available [facility] ([facility]) [address] [place], [address], 08/03/2015 09:11:39 07/29/19 16 07/30/2015 CMP, serum or plasm a glucose, serum 88 mg/dL 65-99 Not Available [facility] ([facility]) [address] [facility] [place], [address], 07/30/2015 06:07:07 07/29/19 16 07/30/2015 CMP, serum or plasm a BUN 9 mg/dL 6-24 Not Available [facility] ([facility]) [address] [place], [address], 07/30/2015 06:07:07 07/29/19 16 07/30/2015 CMP, serum or plasm a creatinine, serum 0.51 mg/dL 0.57-1 .00 below low normal Not Available [facility] ([facility]) [address] [place], [address], 07/30/2015 06:07:07 07/29/19 16 07/30/2015 CMP, serum or plasm a eGFR if nonafricn AM 120 mL/mi n/1.7 3 >59 Not Available [facility] ([facility]) [address] [place], [address], 07/30/2015 06:07:07 07/29/19 16 07/30/2015 CMP, serum or plasm a eGFR if africn AM 138 mL/mi n/1.7 3 >59 Not Available [facility] ([facility]) [address] [place], [address], 07/30/2015 06:07:07 07/29/19 16 07/30/2015 CMP, serum or plasm a BUN/creatini ne ratio 18 9-23 Not Available [facility] ([facility]) [address] [place], [address], 07/30/2015 06:07:07 07/29/19 16 07/30/2015 CMP, serum or plasm a sodium, serum 139 mmol/ L 134-14 4 Not Available [facility] ([facility]) [address] [place], [address], 07/30/2015 06:07:07 07/29/1907/30/2015 CMP, serum or plasm a potassium, serum 4.3 mmol/ L 3.5-5. 2 Not Available [facility] ([facility]) [address] [place], [address], 07/30/2015 06:07:07 07/29/1907/30/2015 CMP, serum or plasm a chloride, serum 100 mmol/ L 97-108 Not Available [facility] ([facility]) [address] [place], [address], 07/30/2015 06:07:07 07/29/1907/30/2015 CMP, serum or plasm a carbon dioxide, total 24 mmol/ L 18-29 Not Available [facility] ([facility]) [address] [place], [address], 07/30/2015 06:07:07 07/29/1907/30/2015 CMP, serum or plasm a calcium, serum 8.8 mg/dL 8.7-10 .2 Not Available [facility] ([facility]) [address] [place], [address], 07/30/2015 06:07:07 07/29/1907/30/2015 CMP, serum or plasm a protein, total, serum 6.6 g/dL 6.0-8. 5 Not Available [facility] ([facility]) [address] [place], [address], 07/30/2015 06:07:07 07/29/1907/30/2015 CMP, serum or plasm a albumin, serum 4.0 g/dL 3.5-5. 5 Not Available [facility] ([facility]) [address] [place], [address], 07/30/2015 06:07:07 07/29/19 16 07/30/2015 CMP, serum or plasm a globulin, total 2.6 g/dL 1.5-4. 5 Not Available [facility] ([facility]) [address] [place], [address], 07/30/2015 06:07:07 07/29/19 16 07/30/2015 CMP, serum or plasm a A/G ratio 1.5 1.1-2. 5 Not Available [facility] ([facility]) [address] [place], [address], 07/30/2015 06:07:07 07/29/19 16 07/30/2015 CMP, serum or plasm a bilirubin, total 0.4 mg/dL 0.0-1. 2 Not Available [facility] ([facility]) [address] [place], [address], 07/30/2015 06:07:07 07/29/19 16 07/30/2015 CMP, serum or plasm a alkaline phosphatase, S 52 IU/L 39-117 Not Available [facility] ([facility]) [address] [place], [address], 07/30/2015 06:07:07 07/29/19 16 07/30/2015 CMP, serum or plasm a AST (SGOT) 17 IU/L 0-40 Not Available [facility] ([facility]) [address] [place], [address], 07/30/2015 06:07:07 07/29/19 16 07/30/2015 CMP, serum or plasm a ALT (SGPT) 13 IU/L 0-32 Not Available [facility] ([facility]) [address] [place], [address], 07/30/2015 06:07:07 07/29/19 16 07/30/2015 lipid panel , serum cholesterol, total 223 mg/dL 100-19 9 above high normal Not Available [facility] ([facility]) [address] [place], [address], 07/30/2015 06:07:07 07/29/19 16 07/30/2015 lipid panel , serum triglyceride s 115 mg/dL 0-149 Not Available [facility] ([facility]) [address] [place], [address], 07/30/2015 06:07:07 07/29/19 16 07/30/2015 lipid panel , serum HDL cholesterol 70 mg/dL >39 ACCOR DING TO ATP-I II GUIDE LINES , HDL-C >59 MG/DL IS CONSI DERED A NEGAT INNA RISK FACTO R FOR CHD. 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 6 PRE-D IABET ES: 5.7 - 6.4 DIABE IMAN: >6.4 GLYCE GRAY CONTR OL FOR ADULT S WITH DIABE IMAN: <7.0 Not Available [facility] ([facility]) [address] [place], [address], 07/30/2015 06:07:08 07/29/19 16 07/30/2015 dhea- sulfa te, serum DHEA-sulfate 177.8 ug/dL 57.3-2 79.2 Not Available [facility] ([facility]) [address] [place], [place], [address], 07/30/2015 06:07:09 07/29/1907/30/2015 TSH, serum or plasm a TSH 0.712 uIU/m L 0.450- 4.500 Not Available [facility] ([facility]) [address] [place], [address], 07/30/2015 06:07:09 07/29/19 16 07/30/2015 lh (lute inizi ng hormo ne), serum LH 3.8 mIU/m L FOLLI CULAR PHASE 2.4 - 12.6 OVULA TION PHASE 14.0 - 95.6 LUTEA L PHASE 1.0 - 11.4 POSTM ENOPA USAL 7.7 - 58.5 Not Available [facility] ([facility]) [address] [place], [address], 07/30/2015 06:07:10 07/29/19 16 07/30/2015 FSH (foll icle- stimu latin g hormo ne), serum FSH 3.2 mIU/m L FOLLI CULAR PHASE 3.5 - 12.5 OVULA TION PHASE 4.7 - 21.5 LUTEA L PHASE 1.7 - 7.7 POSTM ENOPA USAL 25.8 - 134.8 Not Available [facility] ([facility]) [address] [place], [address], 07/30/2015 06:07:10 07/29/19 16 07/30/2015 prola ctin, serum prolactin 9.8 NG/mL 4.8-23 .3 Not Available [facility] ([facility]) [address] [place], [address], 07/30/2015 06:07:11 07/29/19 16 07/30/2015 estra diol, serum estradiol 307.4 pg/mL ADULT FEMAL E: FOLLI CULAR PHASE 12.5 - 166.0 OVULA TION PHASE 85.8 - 498.0 LUTEA L PHASE 43.8 - 211.0 POSTM ENOPA USAL <6.0 - 54.7 PREGN NELSON 1ST TRIME STER 215.0 - >4300 .0 GIRLS (1-10 YEARS ) 6.0 - 27.0 KEVIN ECLIA METHO DOLOG Y Not Available [facility] ([facility]) [address] [place], [address], 07/30/2015 06:07:11 07/29/19 16 07/30/2015 proge stero ne, serum progesterone 0.5 NG/mL FOLLI CULAR PHASE 0.2 - 1.5 LUTEA L PHASE 1.7 - 27.0 OVULA TION PHASE 0.8 - 3.0 PREGN ANT FIRST TRIME STER 8.8 - 48.6 SECON D TRIME STER 12.4 - 75.8 THIRD TRIME STER 58.5 - 222.3 POSTM ENOPA USAL 0.1 - 0.8 Not Available [facility] ([facility]) [address], [place], [address], 07/30/2015 06:07:11 09/01/19 16 09/01/2015 bun/c reati nine, ratio , serum blood urea nitrogen 10 mg/dL 8-26 normal Not Available [facility] (Lab) [address] [place] [address], [address], 09/01/2015 15:52:52 09/01/19 16 09/01/2015 bun/c reati nine, ratio , serum creatinine 0.60 mg/dL 0.7-1. 2 low Not Available [facility] (Lab) [address] [place] [address], [address], 09/01/2015 15:52:52 09/01/19 16 09/01/2015 bun/c reati nine, ratio , serum estimated GFR calculation rad > 60 normal > OR = 60 ml/mi n/1.7 3 squar e meter s The MDRD formu la used to calcu late the eGFR resul t has not been valid ated in patie nts > 70 years of age. Not Available [facility] (Lab) [address] [place] [address], [address], 09/01/2015 15:52:52 09/01/19 16 09/01/2015 bun/c reati nine, ratio , serum results ISTAT - Produ cer Id infor matio n not found for OBX-s pecif ic produ cer legen d Not Available [facility] (Lab) [address] [place] [address], [address], 09/01/2015 15:52:52 08/05/19 16 08/05/2015 dexa PT NAME: DANIEL NASCIMENTO KELLEN Amor : 1975 PT SEX/AG E: PT ACCT NUMBER : [id number] PT MR#: [id number] ROOM/B ED: PT STATUS : REG CLI DATE OF EXAMIN ATION: ORDERI PHYSIC FAHAD: MARIE RAMON MAN M.D. ATTEND ING PHYSIC FAHAD: MARIE RAMON MAN , M.D. DICTAT ING PHYSIC FAHAD: Papi BURROUGHS M.D. 003 DIGITA L MAMM SCREEN -JAMES INDICA TION: Screen ing TECHNI QUE: Digita l MLO and CC views. Comput er aided detect ion was perfor med and review ed. COMPAR WILFREDO: None DENSIT Y: There is hetero geneou sly dense breast tissue , which may obscur e small masses . FINDIN GS: A subtle cluste r of microc alcifi cation s is sugges álvaro in the upper outer quadra nt of the left breast . Recomm end magnif icatio n views for better defini tion. Otherw ise no domina nt mass lesion or collins ectura l distor tion, malign ant calcif icatio n, skin thicke fortino or retrac tion or signif icant new or develo ping densit y is detect ed. IMPRES SIONS: BI-RAD S catego ry 0: Incomp lete; need additi onal imagin g evalua tion RECOMM ENDATI ONS: Diagno stic left mammog fredy with magnif icatio n views Review ed, dictat ed and finali zed at [facility]. __ Electr onical ly signed by: JEREL BURROUGHS Date: Time: 08:54 JEREL BURROUGHS M.D.__ ___ [facility] [address] [place], [place] [phone] ([facility]) [address], [place], [address], 08/13/2015 10:54:37 08/05/19 16 08/05/2015 [email or web address] PT NAME: DANIEL NASCIMENTO : 1975 PT SEX/AG E: F/41 PT ACCT NUMBER : [id number] PT MR#: [id number] ROOM/B ED: PT STATUS : REG CLI DATE OF EXAMIN ATION: ORDERI PHYSIC FAHAD: MARIE POND MLalit ATTEND ING PHYSIC FAHAD: MARIE POND , MLalit DICTAT ING PHYSIC FAHAD: ADELITA JOHNSON M.D. 016 EXAMIN ATION: US PELVIC (NON-O B) W/TV DATE: 08:51: 00 INDICA TION: Hypert rophy of the uterus TECHNI QUE: Multip le transa bdomin al and endova ginal sonogr aphic images of the pelvis were obtain ed. COMPAR WILFREDO: None. FINDIN GS: The uterus measur es 12.0 x 8.9 x 8.1 cm. There is hetero herreraou s myomet rial echote xture and myomet rial thicke fortino of the mold dumper ior uterin e body relati ve to the anteri or uterin e body. The endome trial comple x measur es 16 mm in thickn ess. The right ovary measur es 5.8 x 3.1 x 4.6 cm and contai ns cysts measur ing up to 3.5 cm. The left ovary measur es 2.9 x 2.1 x 1.8 cm. There is no free fluid in the pelvis . IMPRES COY: 1. Hetero geneou s echote xture and myomet rial thicke fortino of the mold dumper ior uterin e body which may be relate d to adenom yosis or possib ly fibroi d, althou gh no discre te mass is identi fied. Furthe r evalua tion with contra st enhanc ed pelvic MRI is recomm ended. __ Review ed, dictat ed, and finali zed at [facility] __ Electr onical ly signed by: Dr. ADELITA Wilkerson Date: Time: 10:15 ADELITA JOHNSON M.D.__ ___ [facility] [address] [place] [address] [facility] ([facility]) [address], [place], [address], 09/08/2016 13:37:58 08/14/19 16 08/14/2015 ethan escobaryannig No observ ation record ed. [email or web address] Not Available 10/22 13:13:05 08/24/19 16 08/24/2015 dexa PT NAME: DANIEL NASCIMENTO : 1975 PT SEX/AG E: PT ACCT NUMBER : [id number] PT MR#: [id number] ROOM/B ED: PT STATUS : REG CLI DATE OF EXAMIN ATION: ORDERI PHYSIC FAHAD: MARIE POND Phillip ATTEND [facility] PHYSIC FAHAD: MARIE POND , MLalit DICTAT [facility] PHYSIC FAHDA: Papi BURROUGHS M.D. 001 COMPAR WILFREDO MAMMOG FREDY COMPAR WILFREDO: 5 and 5 outsid e mammog raphic examin ations from [facility] is FINDIN GS: There is a new cluste r of groupe d microc alcifi cation s in the upper aspect of the left breast on the MLO view of 6; these are not eviden t on prior examin ations . Recomm end diagno stic left mammog fredy with magnif icatio n views. IMPRES COY: BIRADS Catego ry 0: Incomp lete; need additi onal imagin g evalua tion RECOMM ENDATI ON: Diagno stic left mammog fredy with magnif icatio n views Review ed, dictat ed and finali zed at [facility] __ Electr onical ly signed by: JEREL BURROUGHS Date: Time: 14:05 JEREL BURROUGHS M.D.__ ___ [facility] [address] [place] [id number] [place] [address] (Imaging) [address] [place] [address] [place] [address], [phone], 10/23/2015 13:13:05 08/24/19 16 08/05/2015 dexa PT NAME: DANIEL NASCIMENTO : 1975 PT SEX/AG E: F/41 PT ACCT NUMBER : [id number] PT MR#: [id number] ROOM/B ED: PT STATUS : REG CLI DATE OF EXAMIN ATION: ORDERI NG PHYSIC FAHAD: MARIE RAMON MAN M.D. ATTEND ING PHYSIC FAHAD: MARIE RAMON MAN , M.D. DICTAT [facility] PHYSIC FAHAD: Papi BURROUGHS M.D. 003 DIGITA L MAMM SCREEN -JAMES INDICA TION: Screen ing TECHNI QUE: Digita l MLO and CC views. Comput er aided detect ion was perfor med and review ed. COMPAR WILFREDO: None DENSIT Y: There is hetero geneou sly dense breast tissue , which may obscur e small masses . FINDIN GS: A subtle cluste r of microc alcifi cation s is sugges álvaro in the upper outer quadra nt of the left breast . Recomm end magnif icatio n views for better defini tion. Otherw ise no domina nt mass lesion or collins ectura l distor tion, malign ant calcif icatio n, skin thicke fortino or retrac tion or signif icant new or develo ping densit y is detect ed. IMPRES SIONS: BI-RAD S catego ry 0: Incomp lete; need additi onal imagin g evalua tion RECOMM ENDATI ONS: Diagno stic left mammog fredy with magnif icatio n views Review ed, dictat ed and finali zed at [facility]. __ Electr onical ly signed by: JEREL BURROUGHS Date: Time: 08:54 JEREL BURROUGHS M.D.__ ___ [facility] [address] [place] [address] [email or web address] [facility] ([facility]) [address], [place], [address], 10/23/2015 13:13:06 08/25/19 16 08/25/2015 dexa PT NAME: ANADAVIDDANIEL : 1975 PT SEX/AG E: PT ACCT NUMBER : [id number] PT MR#: [id number] ROOM/B ED: PT STATUS : REG CLI DATE OF EXAMIN ATION: ORDERI PHYSIC FAHAD: CAMPOS Turpin Phillip ATTEND ING PHYSIC FAHAD: CAMPOS Turpin, Phillip DICTAT ING PHYSIC FAHAD: Papi BURROUGHS M.D. 017 DIGITA L MAMM DIAG-L EFT W/O CAD INDICA TION: A subtle cluste r of microc alcifi cation s was sugges álvaro in the upper outer quadra nt of the left breast on 6 screen ing mammog fredy examin ation TECHNI QUE: Digita l ML view of left breast . Magnif icatio n ML, MLO and cc views. COMPAR WILFREDO: [facility] bilate ral digita l screen ing mammog fredy FINDIN GS: The sugges álvaro microc alcifi cation s are not defini tively confir med. Recomm end 6 month diagno stic left mammog fredy follow up . IMPRES COY: BI-RAD S catego ry 3: Probab ly benign Recomm endati on: 6 month left diagno stic mammog fredy follow up Review ed, dictat ed and finali zed at [facility] __ Electr onical ly signed by: JEREL BURROUGHS Date: Time: 12:27 JEREL BURROUGHS M.D.__ ___ [facility] [address] [place] [address] [facility] (Imaging) [address], [place], [address], 09/08/2016 13:37:58 08/25/19 16 08/25/2015 MAMMO scree fortino, bilat eral No observ ation record ed. [facility] [address] [place], [address], 09/08/2016 13:38:21 08/26/19 16 08/26/2015 mammo yanni escobar No observ ation record ed. [facility] Not Available 09/08 13:37:59 08/26/19 16 08/26/2015 mammo gramyanni No observ ation record ed. [facility] Not Available 09/08 13:37:59 09/01/19 16 09/01/2015 mrikn erwo PT NAME: DANIEL NASCIMENTO : 1975 PT SEX/AG E: F/41 PT ACCT NUMBER : [id number] PT MR#: [id number] ROOM/B ED: PT STATUS : REG CLI DATE OF EXAMIN ATION: ORDERI PHYSIC FAHAD: CAMPOS Turpin Phillip ATTEND [facility] PHYSIC FAHAD: CAMPOS Turpin, Phillip DICTAT [facility] PHYSIC FAHAD: MEL VILLEDA MD 008 EXAMIN ATION: MRI PELVIS W/O W/ DATE: 13:51: 00 INDICA TION: Enlarg ed uterus TECHNI QUE: Magnet ic resona nce imagin g (MRI) of the pelvis was perfor med withou t and with 13 mL Multih ance intrav enous contra st. Fullfi eld sequen ashutosh of the pelvis includ ed axial and hayes l T2- weight ed SS FSE, hayes l 2D FIESTA , axial fluid sensit inna FSE STIR, axial diffus ion-we ighted SE, axial dual-e cho T1-serena ghted FSPGR and axial T1 weight ed LAVA. Small field of view sequen ashutosh includ ed axial, sagitt al and hayes l T2-serena ghted FSE center ed on the uterus and adnexa . Postco ntrast sequen ashutosh includ ed a hayes l T1 weight ed and a time course axial T1-serena ghted LAVA with fullfi eld of view of the pelvis . COMPAR WILFREDO: Ultras ound dated 6 FINDIN GS: Promin ent thicke fortino of the mold dumper ior uterus with nima us tiny T2 hyperi ntense cystic spaces within the thicke gilmar juncti onal zone which measur es up to 4.4 cm in thickn ess consis tent with diffus e adenom yosis. Additi onal small cystic spaces are seen within the endome trium which measur es up to 8 mm in thickn ess. Eight low signal intens ity uterin e fibroi ds, the larges t along the right uterin e wall measur ing up to 3 cm in diamet er. Cluste r of an naboth fahad cysts at the cervix the larges t measur ing up to 13 mm in diamet er. 4.2 cm simple appear ing left ovaria n cyst. Two smalle r simple appear ing right ovaria n cysts, the larger measur ing 3.1 cm in diamet er. Bladde r and visual ized bowels are unrema rkable . No pathol ogical ly enlarg ed pelvic or inguin al lympha denopa thy. No free fluid in the pelvis . A few small sacral Tarlov cysts. Normal bone marrow signal throug hout. IMPRES COY: 1. Promin ent diffus e adenom yosis involv ing the mold dumper ior uterin e wall. 2. Eight uterin e fibroi ds measur ing up to 3.0 cm in deann l diamet er. 3. Bilate ral simple appear ing ovaria n cysts. __ Review ed, dictat ed and finali zed at [facility]. __ Electr onical ly signed by: Dr. TAZ PENA RT Date: Time: 21:56 BECKY VERAS, TAZ Jules MD____ _ [employer] [address] [facility] [employer] [address] [place] [address] [facility] (Imaging) [address] [place] [address] [place] [address], [address], 09/08/2016 13:37:59 09/08/19 16 08/24/2015 dexa PT NAME: DANIEL NASCIMENTO KELLEN Amor : 1975 PT SEX/AG E: PT ACCT NUMBER : [id number] PT MR#: [id number] ROOM/B ED: PT STATUS : REG CLI DATE OF EXAMIN ATION: ORDERI PHYSIC FAHAD: MARIE RAMON MAN MLalit ATTEND [facility] PHYSIC FAHAD: MARIE POND , [place]. DICTAT [facility] PHYSIC FAHAD: Papi BURROUGHS M.D. 001 COMPAR WILFREDO MAMMOG FREDY COMPAR WILFREDO: 5 and 5 outsid e mammog raphic examin ations from [facility] is FINDIN GS: There is a new cluste r of groupe d microc alcifi cation s in the upper aspect of the left breast on the MLO view of 6; these are not eviden t on prior examin ations . Recomm end diagno stic left mammog fredy with magnif icatio n views. IMPRES COY: BIRADS Catego ry 0: Incomp lete; need additi onal imagin g evalua tion RECOMM ENDATI ON: Diagno stic left mammog fredy with magnif icatio n views Review ed, dictat ed and finali zed at [facility]. __ Electr onical ly signed by: JEREL BURROUGHS Date: Time: 14:05 JEREL BURROUGHS M.D.__ ___ [facility] [address] [place] [address] ([facility]) [address], [place], [address], 10/23/2015 13:13:07 03/25/19 17 03/25/2016 DEXA PT NAME: DANIEL NASCIMENTO KELLEN Amor : 1975 PT SEX/AG E: F/42 PT ACCT NUMBER : [id number] PT MR#: [id number] ROOM/B ED: PT STATUS : REG CLI DATE OF EXAMIN ATION: ORDERI PHYSIC FAHAD: MARIE RAMON MAN MLalit ATTEND ING PHYSIC FAHAD: MARIE RAMON MAN , MLalit DICTAT ING PHYSIC FAHAD: Papi BURROUGHS M.D. 021 DIGITA L DMITRI DIAG - LT INDICA TION: 6 month follow up, microc alcifi cation s sugges álvaro in the upper left breast on 6 bilate ral digita l screen ing mammog fredy TECHNI QUE: Digita l ML, MLO and cc full field mammog raphic views of left breast . Additi onal magnif icatio n views of left breast in all 3 projec tions. COMPAR WILFREDO: 6 diagno stic left digita l mammog fredy [facility] bilate ral digita l screen ing mammog fredy FINDIN GS: There is hetero geneou sly dense breast tissue , which may obscur e small masses . No domina nt mass lesion or collins ectura l distor tion, malign ant calcif icatio n, skin thicke fortino or retrac tion or signif icant new or develo ping densit y since 6 is detect ed. IMPRES COY: BI-RAD S catego ry 1: Negati ve Recomm endati on: Routin e mammog raphic screen ing Review ed, dictat ed and finali zed at [facility]. __ Electr onical ly signed by: JEREL BURROUGHS Date: Time: 11:50 JEREL BURROUGHS M.D.__ ___ [facility] [address] [place] [address] (Imaging) [address] [place] [address], [address], 03/28/2016 13:01:42 03/25/19 17 03/25/2016 imagi ng/krystal fuller tic resul t No observ ation record ed. [facility] (Imaging) [address], [place], [address], 03/28/2016 14:14:15 03/25/19 17 03/25/2016 MAMMO , diagn ostic , digit al, unila teral No observ ation record ed. [facility] (Lab) [address], [place], [address], 03/28/2016 14:14:13 03/31/19 17 02/29/2016 MAMMO , scree fortino, bilat eral No observ ation record ed. [facility] [address], [place], [address], 04/01/2016 15:40:36 03/31/19 17 03/31/2016 MAMMO , scree fortino, bilat eral No observ ation record ed. [facility] Not Available 2016 15:40:35 Result Notes None recorded. Problems Name Problem SNOMED Code Status Onset Date Resolution Date Notes Provider Name and Address Organization Details Recorded Time Irregular periods 37466366 Active Marie Gil null, [facility] 6 10:36:52 Anxiety 18338667 Active Marie Eduin null, [facility] 6 10:36:52 Enlarged uterus 127183416 Active Karlie Wade LPN null, [facility] 6 13:29:17 Hyperlipidemia 43657269 Active Marie Gil null, [place] [facility] 6 10:50:18 Bacterial vaginosis 219106091 Active Marie Eduin null, [facility] 6 18:19:59 Mammography abnormal 409570290 Active Marie ElkinsEduin null, [facility] 6 17:00:30 Problem Notes None recorded. Procedures Surgical History Date Name Laterality Status Provider Name and Address Organization Details Recorded Time 7 Most Recent Mammogram completed Kira Woodruff [place] - [facility] 08/09/2016 15:20:17 6 Other completed Danika Landon [place] - [facility] 12/15/2015 12:58:36 6 Date of Last Pap Smear completed Kira Woodruff MA [facility] 08/09/2016 15:18:39 1 LEEP completed Danika AvilezARTURO [email or web address] [place] - [facility] 10/14/2014 15:18:25 Imaging Results Imaging Date Name Status LastModified by Organiz ation Details LastModified Time 08/05/2015 dexa completed [address] (Imaging) [address] [place] [address], [address], 08/13/2015 10:54:37 08/05/2015 [email or web address] completed [facility] (Imaging) [address] [place] [address], [address], 09/08/2016 13:37:58 08/14/2015 mammogram, screening [email or web address] Information not available 10/23/2015 13:13:05 08/24/2015 dexa completed [address] (Imaging) [address] [place] [address], [address], 10/23/2015 13:13:05 08/05/2015 dexa completed [address] (Imaging) [address] [place] [address], [address], 10/23/2015 13:13:06 08/25/2015 dexa completed [facility] (Imaging) [address] [place] [address], [address], 09/08/2016 13:37:58 08/25/2015 MAMMO, screening, bilateral completed [facility] Orders [address] [place], [address], 09/08/2016 13:38:21 08/26/2015 mammogram, screening completed [facility] Information not available 09/08/2016 13:37:59 08/26/2015 mammogram, screening completed [facility] Information not available 09/08/2016 13:37:59 09/01/2015 [email or web address] completed [facility] (Imaging) [address] [place] [address] [address], [place], [address], 09/08/2016 13:37:59 08/24/2015 dexa completed [email or web address] (Imaging) [address] [place] [address], [address], 10/23/2015 13:13:07 03/25/2016 DEXA completed [address] (Imaging) [address] [place] [address] [facility] [place], [address], 03/28/2016 13:01:42 03/25/2016 imaging/diagnos tic result completed [facility] (Imaging) [address] [place] [address], [address], 03/28/2016 14:14:15 03/25/2016 MAMMO, diagnostic, digital, unilateral completed [facility] (Lab) [address] [place] [address], [place], [address], 03/28/2016 14:14:13 02/29/2016 MAMMO, screening, bilateral completed [facility] [address], [place], [address], 04/01/2016 15:40:36 03/31/2016 MAMMO, screening, bilateral completed [facility] Information not available 04/01/2016 15:40:35 Procedure Notes None recorded. Medical Equipment None Reported. Allergies Allergen ID Allergen Name Allergen Category Reaction Reaction Severity Criticality Documentation Date Start Date Code Code System Note Provider Name and Address Organization Details Recorded Time [id number] Erythropo ietin (substanc e) medicatio n respirato ry distress mild Not available 10/14/2014 15369 003 SNOMED Not Available Not Available Not Available [id number] erythromy ally medicatio n respirato ry distress severe Not available 08/09/2016 4053 RxNorm 08/09 pt state s over 20 yrs ago, react ion probl ems c breat chepe, cb-rm a Not Available Not Available Not Available Medications Name Sig Start Date Stop Date Status Note LastModified by Organization Details LastModified Time buspirone 5 mg tablet Take 1 tablet 3 times a day by oral route. active Not Available Not Available No t Available prednisone 10 mg tablet active Not Available Not Available Not Available ibuprofen 800 mg tablet TAKE 1 TABLET BY MOUTH THREE TIMES DAILY NEEDED FOR CRAMPS active Not Available Not Available N ot Available ondansetron HCl 8 mg tablet active Not Available Not Available Not Available Prometrium 100 mg capsule Take 1 capsule twice a day by oral route for 7 days. 2014 active Not Available Not Available Not Avai lable ciprofloxaci n 500 mg tablet active Not Available Not Available Not Available tramadol 50 mg tablet active Not Available Not Available No t Available Metrogel Vaginal 0.75 % (37.5 mg/5 gram) Insert 1 applicatorf ul every day by vaginal route at bedtime for 5 days. 2015 active Not Available Not Available Not Avai lable simvastatin 20 mg tablet Take 1 tablet every day by oral route. active Not Available Not Available No t Available naproxen 500 mg tablet active Not Available Not Available No t Available mometasone 0.1 % topical cream active Not Available Not Available Not Available diazepam 5 mg tablet Take 1 tablet twice a day by oral route for 2 days. active Not Available Not Available No t Available amoxicillin 875 mg-potassium clavulanate 125 mg tablet active Not Available Not Available Not Available oxycodone 5 mg tablet active Not Available Not Available No t Available Lo Loestrin Fe 1 mg-10 mcg (24)/10 mcg (2) tablet Take 1 tablet every day by oral route. active Not Available Not Available No t Available Vitals Date Recorded Body height Body mass index (BMI) Body weight Provider Name and Address Organization Details Last Updated DateTime 10/14/2014 175.26 cm 23.5 kg/m2 54898.90989 g Danika Landon MA [place] - [facility] 10/14/2014 15:07:06 Date Recorded Body height Body weight Body mass index (BMI) Systolic blood pressure Diastolic blood pressure Provider Name and Address Organization Details Last Updated DateTime 07/28/2015 175.26 cm 65695.00 209 g 23.2 kg/m2 102 mm[Hg] 58 mm[Hg] Anthony Mohamud RN [facility] 6 11:38:00 Date Recorded Body height Provider Name an d Address Organization Details Last Updated DateTime 12/15/2015 175.26 cm Danika Landon MA [facility] 12/15/2015 12:54:08 Date Recorded Body weight Body mass index (BMI) Provider Name and Address Organization Details Last Updated DateTime 12/15/2015 67174.52 g 20.8 kg/m2 Danika Landon MA [facility] 12:54:13 Date Recorded Body height Provider Name an d Address Organization Details Last Updated DateTime 08/09/2016 175.26 cm Kira Woodruff MA [facility] 2016 15:10:58 Date Recorded Body mass index (BMI) Body weight Provider Name and Address Organization Details Last Updated DateTime 08/09/2016 21 kg/m2 42227.12 g Kira Woodruff MA [facility] 08/09/2016 15:11:05 Date Recorded Systolic blood pressure Diastolic blood pressure Provider Name and Address Organization Details Last Updated DateTime 10/14/2014 122 mm[Hg] 78 mm[Hg] Danika Landon MA [facility] 10/14/2014 15:19:59 Date Recorded Systolic blood pressure Diastolic blood pressure Provider Name and Address Organization Details Last Updated DateTime 12/15/2015 106 mm[Hg] 68 mm[Hg] Danika Landon MA [facility] 12/15/2015 12:55:10 Date Recorded Systolic blood pressure Diastolic blood pressure Provider Name and Address Organization Details Last Updated DateTime 08/09/2016 108 mm[Hg] 64 mm[Hg] Kira Woodruff MA [facility] 08/09/2016 15:23:16 Social History Question Answer Notes LastModified by Organizat ion Details LastModified Time Tobacco Smoking Status Never Smoker Danika Landon MA null, [facility] 10/14/2014 15:18:25 Do You Have An Advance Directive? No Information not available 10/14/2014 What Is Your Level Of Alcohol Consumption? Occasional Information not available 10/14/2014 Is Blood Transfusion Acceptable In An Emergency? Yes Information not available 10/14/2014 What Is Your Level Of Caffeine Consumption? Moderate Information not available 10/14/2014 How Much Tobacco Do You Chew? None Information not available 10/14/2014 Are You Currently Employed? Yes Information not available 10/14/2014 What Type Of Diet Are You Following? REGULAR Information not available 10/14/2014 Which Illicit Or Recreational Drugs Have You Used? None Information not available 10/14/2014 Education 12 Information no t available 10/14/2014 What Is Your Occupation? [employer] Information not available 10/14/2014 Live Alone Or With Others? With Others Information not available 10/14/2014 How Many Children Do You Have? 2 Information not available 10/14/2014 Performs Monthly Self-breast Exam? No Information no t available 10/14/2014 Do You Use Protection During Sex? No Information not available 10/14/2014 What Is Your Relationship Status? Information not available 10/14/2014 Seat Belts Used Routinely Yes Information not available 10/14/2014 Are You Sexually Active? Yes Information not available 10/14/2014 How Much Tobacco Do You Smoke? No Information not available 10/14/2014 General Stress Level Low Information not available 10/14/2014 Do You Use Sunscreen Routinely? Yes Information not available 10/14/2014 How Many Years Have You Smoked Tobacco? 0 Information not available 10/14/2014 Sex: Unknown Functional Status Question Answer Note LastModified by Organization D etails LastModified Time What is your exercise level? Moderate Information not available 10/14/2014 Mental Status None recorded. Family History Relationship Description Onset Age of this Age Resolved Age Notes LastModified by Organization Details LastModified Time Mother Pancreatitis 38 [email or web address] Not alejandro ilable 07/29/2015 10:18:08 Father Malignant tumor of lung 55 [email or web address] Not available 07/28 10:18:08 Medical History Condition Response Heart Problems N Other N Breast Cancer N Thyroid Problems N Kidney or Bladder Problems N GI Problems N Lung Disease N Depression N Acne N Breast Problem N Eating Disorder N Anemia N Anesthesia Complications N Headaches/Migraines N Anxiety Disorder N Diabetes N Ovarian Cancer N Blood Transfusions N Arthritis N Polyps N Infertility N Acid Reflux (GERD) N Cancer N Stroke N Abuse/Domestic Violence N Asthma N Endometriosis N High Cholesterol N Hepatitis N Heart Disease N Fibromyalgia N Headaches Y Pre-Eclampsia N Hypertension N Osteoporosis N Kidney Disease N Gynecological History Statement/Question Response Abnormal Pap Y Flow Light On BCP's at Conception? N STIs/STDs N HPV Vaccine N Most Recent Mammogram 03/25/2016 Age at Menarche 11 Current Control Method None Age at First Child 16 Frequency of Cycle (Q days) Sexually Active? Y Menses Monthly N Date of Last Pap Smear 07/28/2015 Sexual Problems? N LMP Approximate Desired Control Method N/A Obstetrics History GPAL:G 2 P 2 0 0 2 Type Value Multiple Births 0 Full Term 2 Induced 0 Spontaneous 0 Premature 0 Living 2 Ectopics 0 Total 2 Past Encounters Encounter ID Performer Location Encounter Start Date Encounter Closed Date Diagnosis/Indication Diagnosis SNOMED-CT Code Diagnosis ICD10 Code Diagnosis Note [id number] Marie Swartz ([employer]) [address] [place] [address] [phone] 0 10/14/2014 14:33:13 10/14/2014 16:04:46 Irregular periods [id number] Marie Swartz ([employer]) [address] [place] [address] [id number] 07/28/2015 10:26:06 07/29/2015 10:39:38 Irregular periods 02566692 N92.6 Due to enlarged uterus and length of abnormal bleeding, may benefit from hysterosco py or sonohyster ogram. Anxiety 77986200 F41.9 Gynecologi c examination 28247090 Z01.411 Enlarged uterus 60043282 4 N85.2 Screening mammography 24 085115 Z12.31 [id number] Marie Swartz ([employer]) [address] [place] [address] [id number] 12/15/2015 11:39:47 12/15/2015 20:06:45 Postoperative care 180442048 Z48.89 Uterine leiomyoma 072453 05 D25.9 Mammography abnormal 168 836349 R92.8 Enlarged uterus 59305661 4 N85.2 [id number] Marie Swartz ([employer]) [facility] [place] [address] 08/09/2016 14:34:47 08/11/2016 14:49:26 Hemorrhagic cyst of ovary 174254360 N83.209 Uterine leiomyoma 446342 05 D25.9 status post-UFE on 11/18/2015 at [facility] Health Concerns Section Related Observation LastModified by Organization Detai ls LastModified Time None Recorded Concern Status LastModified by Organization Details LastModified Time None Recorded Advance Directives Directive N: Payers Encounter Date Sequence Insurance Name Policy Number Policy Kaur Covered Member ID Kaur Member ID Guarantor Name 10/14/2014 1 [employer] - OPEN ACCESS (POS) [id number] Didi Rebolledo [id number] Didi Nascimento 07/28/2015 1 [employer] [facility] [place] PRIOR TO 2022 (O) [id number] Didi Nascimento [id number] Didi Nascimento 12/15/2015 1 [facility] [id number] Randy Nascimento [id number] Didi Nascimento 08/09/2016 1 [facility] [id number] Randy Nascimento [id number] Didi Nascimento Notes Date Note Type Note Provider Name and Address Organization Details Recorded Time 07/28/2015 text/html Abnormal BleedingReported bypatient.Onset/Timing :past 2 cycles Duration:period lasting 30 days Quality:heavy Context:occurs between normal cycles Associated Symptoms:no pelvic pain; no abdominal pain; no dyspareunia; no fatigue; no dizziness; no anemia/iron supplements; no shortness of breath; no CP/palpitations; no bloating; no change in bowel function; no urinary symptoms; no PMS; no vaginal discharge; no vaginal itching/irritation;dys menorrhea 39 year old FAIZAN Mclaughlin 07/29/2015 10:38:22 12/15/2015 text/html 39 yo WF s/p UFE @[facility] weeks ago here for f/u FAIZAN Mclaughlin SIBimal 12/15/2015 16:56:09 12/15/2015 text/html Post-OpReported bypatient.Associated Symptoms:incision healing well; no fatigue; normal appetite; normal bowel function; no constipation; no nausea; no emesis; pain improving; no pain; no fever; no bleeding; no lower extremity edema/pain; no dysuria/urinary symptomsNotes:UFE Marie oleary, [facility] 12/15/2015 16:56:09 08/09/2016 text/html Abnormal BleedingReported bypatient.Associated Symptoms:no dysmenorrhea; no pelvic pain; no abdominal pain; no dyspareunia; no fatigue; no dizziness; no anemia/iron supplements; no shortness of breath; no CP/palpitations; no bloating; no change in bowel function; no urinary symptoms; no PMS; no vaginal discharge; no vaginal itching/irritation 39 yo WF s/p UFE @[facility] 12/2015 here for f/u er hmb Marie oleary, [facility] 08/09/2016 19:01:26 OBGyn Episode Ob Episode Information Episode Created Date Number of Fetuses Patient Bloodtype Patient rh Status Prepregnancy Weight lbs Domestic Partner Domestic Partner Phone Father Name Neurological Surgery Teacher Status 10/15/19 15 1 CLOSED Fetus Data First Name Last Name Admitted to NICU Weight (g) Sex Living Outcome Pediatric Complications Fetus ID Race Codes Race Delivery Type 3997.27 95 M Full Term [id number] Unsucessf ul Fady Calculation Initial Fady Date Initial Exam Date Initial Exam Provider Initial Ultrasound Date Last Menstrual Period Date Ultra Sound Weeks Gestation 0 Eighteen To Twenty Week Fady Update Ultra Sound Date Fundal Height At Umbil Quickening Date Ultra Sound Latest Weeks Gestation Final Fady Confirmed By Final Fady Confirmed Date Final Fady Date Ultra Sound Latest Days Gestation 0 0 Menstrual History Last Menstrual Date Menses Monthly On Bcp Conception Prior Menses Frequency Hcg Plus Date Menarche Onset Age Delivery Information Delivery Date Delivery Type Labor Anesthesia Weeks Gestation Incision Type Labor Labor Length Hrs Delivered By Post Complications Tubal Sterilization Discharge Date Comments 6 General 38 Discharge Information Feeding Method Contraceptive Method Maternal HG B and HCT Levels Ob Episode Information Episode Created Date Number of Fetuses Patient Bloodtype Patient rh Status Prepregnancy Weight lbs Domestic Partner Domestic Partner Phone Father Name Neurological Surgery Teacher Status 10/15/19 15 1 CLOSED Fetus Data First Name Last Name Admitted to NICU Weight (g) Sex Living Outcome Pediatric Complications Fetus ID Race Codes Race Delivery Type 3883.88 15 F Full Term [id number] Vaginal Fady Calculation Initial Fady Date Initial Exam Date Initial Exam Provider Initial Ultrasound Date Last Menstrual Period Date Ultra Sound Weeks Gestation 0 Eighteen To Twenty Week Fady Update Ultra Sound Date Fundal Height At Umbil Quickening Date Ultra Sound Latest Weeks Gestation Final Fady Confirmed By Final Fady Confirmed Date Final Fady Date Ultra Sound Latest Days Gestation 0 0 Menstrual History Last Menstrual Date Menses Monthly On Bcp Conception Prior Menses Frequency Hcg Plus Date Menarche Onset Age Delivery Information Delivery Date Delivery Type Labor Anesthesia Weeks Gestation Incision Type Labor Labor Length Hrs Delivered By Post Complications Tubal Sterilization Discharge Date Comments 3 None 38 Discharge Information Feeding Method Contraceptive Method Maternal HG B and HCT Levels
== END 2024-03-11 15:22 | disposition home or self-care (01) ==
LOC: ANHIMG 15:22
PROVIDERS: PCP Family Medicine; Visit Provider Family Medicine
DX: Z12.31 Encounter for screening mammogram for malignant neoplasm of breast (principal)
CPT/HCPCS: 77063; 77067